=== PATIENT | female | born 1945 | race Caucasian/White ===

== ENCOUNTER 2020-08-31 09:55 | Outpatient (CLI) | payer MEDICARE, BC ==
[~2020-08-31 09:55] MED LIST: ASPI-1264 PO; DILT30TA12 PO
== END 2020-08-31 23:59 | disposition home or self-care (01) ==
LOC: 64 CT 09:55
PROVIDERS: ATTEND Family Medicine
DX: S52.501A Unspecified fracture of the lower end of right radius, initial encounter for closed fracture (principal); M19.031 Primary osteoarthritis, right wrist; X58.XXXA Exposure to other specified factors, initial encounter; Y93.89 Activity, other specified; Y92.89 Other specified places as the place of occurrence of the external cause; Y99.8 Other external cause status
CPT/HCPCS: 73200